=== PATIENT | male | born 1940 | race American Indian/Alaskan Native ===

== ENCOUNTER 2016-08-22 12:19 | Emergency (ER) | payer MEDICAID, OTHER ==
[2016-08-22 13:12] VITALS: BP 136/67
[2016-08-22 13:27] LABS: CHLORIDE,CL 102 mmol/L (101-111); SODIUM,NA 134 mmol/L (135-145)
--- NOTE | 2016-08-22 13:55 | EDM.PDOC ---
ED HPI Trauma - General Chief Complaint: Lower Extremity Injury/Pain Stated Complaint: BY AMBULANCE Time Seen by Provider: 08/22/16 13:45 Source: Reports: Patient History Limitations: Reports: No limitations - History of Present Illness INITIAL COMMENTS - FREE TEXT/NARRATIVE: This 76 yo male patient was brought to the ED by [facility] due to swelling in his right foot. The patient reports he had surgery on his right foot in April and has had swelling in that area since surgery. The patient reports no pain. The patient was sent into the ED by a Nurse due to the swelling. Occurred When: other (since April) Occurred Where: home Method of Injury: other Severity: moderate Pain/Injury Location: Reports: lower extremity, right (foot) Consciousness: Reports: no loss of consciousness Associated Symptoms: Reports: no other symptoms Allergies/ADRs: Allergies No Known Allergies Allergy (Verified 04/29/16 11:26) Home Medications: Ambulatory Orders . [No Known Home Meds] 08/22/16 [Confirmed 08/22/16] Past Medical History HEENT History: Reports: Impaired vision Cardiovascular History: Reports: Hypertension Endocrine/Metabolic History: Reports: Diabetes, type II - Past Surgical History Cardiovascular Surgical History: Reports: Vascular surgery Other Cardiovascular Surgeries/Procedures: had an "artery put in" right lower leg in Apr. Social & Family History - Family History Family Medical History: Noncontributory - Tobacco Use Smoking Status *Q: Current Every Day Smoker Years of Tobacco use: 70 Packs/Tins Daily: 1 Second Hand Smoke Exposure: Yes - Caffeine Use Caffeine Use: Reports: Coffee - Recreational Drug Use Recreational Drug Use: No Review of Systems - Review of Systems Review Of Systems: ROS reveals no pertinent complaints other than HPI. Trauma Exam - Physical Exam Exam: See Below Exam Limited By: No limitations General Appearance: Reports: alert, WD/WN, no apparent distress Head: Reports: atraumatic, normocephalic Eyes: bilateral eye: EOMI, normal inspection, PERRL Ears: Reports: normal external exam, normal canal, hearing grossly normal, normal TMs Nose: Reports: normal inspection, normal mucousa, no blood Throat/Mouth: Reports: Normal inspection, Normal lips, Normal teeth, Normal gums , Normal oropharynx, Normal voice, No airway compromise Neck: Reports: non-tender, full range of motion, normal alignment, normal inspection Respiratory Exam: Reports: no respiratory distress, lungs clear, normal breath sounds Cardiovascular: Reports: normal peripheral pulses, regular rate, rhythm, no edema, no gallop, no JVD, no murmur, no rub GI/Abdominal: Reports: normal bowel sounds, soft, non tender, no organomegaly, no distention, no abnormal bruit, no mass (Male) Exam: Deferred Rectal (Males) Exam: Deferred Back: Reports: full range of motion, normal inspection, non-tender Extremities: Reports: normal range of motion, non-tender, pedal edema (right lower extremity). 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 ) - Shivani Coma Score Best Eye Response (Shivani): (4) open spontaneously Best Verbal Response (Randolph): (5) oriented Best Motor Response (Shivani): (6) obeys commands Randolph Total: 15 Course - Vital Signs Last Recorded V/S: Last Vital Signs Temp 37.0 C 08/22/16 12:35 Pulse 76 08/22/16 12:35 Resp 24 H 08/22/16 12:35 BP 136/67 08/22/16 12:35 Pulse Ox 96 08/22/16 12:35 - Orders/Labs/Meds Orders: Active Orders 24 hr Category Date Time Status CULTURE BLOOD [BC] Stat Lab 08/22/16 12:45 Ordered CULTURE WOUND [RM] Stat Lab 08/22/16 13:50 Ordered Vancomycin 2 gm Med 08/22/16 14:21 Ordered Sodium Chloride 0.9% [Normal Saline] 500 ml IV ONETIME Medication Orders Vancomycin HCl 2 gm/ Sodium (Chloride) 500 mls @ 334 mls/hr IV ONETIME ONE Stop: 08/22/16 15:50 Labs: Laboratory Tests 08/22/16 08/22/16 08/22/16 Range/Units 12:59 12:59 12:59 WBC 6.2 (5.0-10.0) 10^3/uL RBC 5.22 (4.6-6.2) 10^6/uL Hgb 13.7 L (14.0-18.0) g/dL Hct 41.7 (40.0-54.0) % MCV 79.9 L (80-100) fL MCH 26.2 L (27.0-34.0) pg MCHC 32.9 L (33.0-35.0) g/dL Plt Count 184 (150-450) 10^3/uL Neut % (Auto) 67.8 (42.2-75.2) % Lymph % (Auto) 18.8 L (20.5-50.1) % [place] % (Auto) 10.3 H (2-8) % Eos % (Auto) 2.9 (1.0-3.0) % Baso % (Auto) 0.2 (0.0-1.0) % Sodium 134 L (135-145) mmol/L Potassium 4.0 (3.6-5.0) mmol/L Chloride 102 (101-111) mmol/L Carbon Dioxide 26.0 (21.0-31.0) mmol/L Anion Gap 10.0 BUN 14 (7-18) mg/dL Creatinine 0.7 (0.6-1.3) mg/dL Est Cr Clr Drug Dosing TNP Estimated GFR (MDRD) > 60 BUN/Creatinine Ratio 20.00 Glucose 129 H (74-105) mg/dL Lactic Acid 1.3 (0.5-2.2) mmol/L Calcium 8.6 (8.4-10.2) mg/dl Total Bilirubin 0.4 (0.2-1.0) mg/dL AST 20 (10-42) IU/L ALT 14 (10-60) IU/L Alkaline Phosphatase 96 (42-121) IU/L Total Protein 6.8 (6.7-8.2) g/dl Albumin 3.5 (3.2-5.5) g/dl Globulin 3.3 Albumin/Globulin Ratio 1.06 Meds: Medications Generic Name Dose Route Start Last Admin Trade Name Freq PRN Reason Stop Dose Admin Vancomycin HCl 2 gm/ Sodium 500 mls @ 334 mls/hr 08/22/16 14:21 Chloride IV 08/22/16 15:50 ONETIME ONE Departure - Departure Time of Disposition: 14:34 Disposition: Home, Self-Care 01 Condition: fair Clinical Impression: Cellulitis Qualifiers: Site of cellulitis: extremity Site of cellulitis of extremity: lower extremity Laterality: right Qualified Code(s): L03.115 - Cellulitis of right lower limb Instructions: Cellulitis, Adult, [id number] Forms: ED Department Discharge Care Plan Goals: The patient was advised of the examination, lab and x-ray results during the visit. The patient was given IV Vancomycin while in the ED. The patient was discharged with a script for Bactrim DS to take 1 by mouth 2 times per day for 10 days and Keflex (500 mg) to take 1 by mouth 4 times per day for 10 days. If the patient has any additional symptoms or concerns, the patient should follow- up with his primary care provider or return to the emergency department. - My Orders Last 24 Hours: My Active Orders 08/22/16 12:45 CULTURE BLOOD [BC] Stat 08/22/16 13:50 CULTURE WOUND [RM] Stat 08/22/16 14:21 Vancomycin 2 gm Sodium Chloride 0.9% [Normal Saline] 500 ml IV ONETIME - Assessment/Plan Last 24 Hours: My Active Orders 08/22/16 12:45 CULTURE BLOOD [BC] Stat 08/22/16 13:50 CULTURE WOUND [RM] Stat 08/22/16 14:21 Vancomycin 2 gm Sodium Chloride 0.9% [Normal Saline] 500 ml IV ONETIME
[2016-08-22] MEDS ORDERED: Vancomycin 2 GM in Sodium Chloride 0.9% 500 ML IV ONE (14:21)
== END 2016-08-22 16:31 | disposition home or self-care (01) ==
LOC: DL.ED 12:19
DX: L03.115 Cellulitis of right lower limb (principal); I10 Essential (primary) hypertension; E11.9 Type 2 diabetes mellitus without complications; F17.210 Nicotine dependence, cigarettes, uncomplicated
CPT/HCPCS: 36415; 73630; 80053; 83605; 85025; 87040; 87070; 96365; 99284; J3370; J7040